=== PATIENT | male | born 1945 ===

== ENCOUNTER → 2018-09-27 12:52 | Outpatient (BNVA) | payer MEDICARE, MEDICAID, SELFPAY | PROVIDERS: Visit Provider Nurse Practitioner Gerontology | DX: N13.30 Unspecified hydronephrosis (principal); Z87.440 Personal history of urinary (tract) infections; M54.9 Dorsalgia, unspecified; I10 Essential (primary) hypertension; J44.9 Chronic obstructive pulmonary disease, unspecified | CPT/HCPCS: 51798; 81003; 99204 ==

== ENCOUNTER → 2019-02-06 10:30 | Outpatient (BNVA) | payer MEDICARE, MEDICAID, SELFPAY | PROVIDERS: PCP Family Medicine; Visit Provider Nurse Practitioner Gerontology | DX: R69 Illness, unspecified (principal) ==

== ENCOUNTER 2019-02-06 12:53 | Outpatient (CLI) | payer MEDICARE, MEDICAID, SELFPAY ==
--- NOTE | 2019-02-06 11:30 | DI.US_ITS ---
SYMPTOM/DIAGNOSIS: RT SCROTAL PAIN, N50.82 SCROTAL ULTRASOUND: Scrotal ultrasound was performed according to the usual protocol. Testes are symmetrical in size and of normal echotexture. Note is made of a focal multi septated cyst of the right testis on its lateral aspect. This shows no increased vascularity on doppler evaluation. This measures about 4 mm. in greatest diameter. No other intratesticular abnormality is seen. A 5 mm. presumed spermatocele is noted in the epididymal head on the right and there is a small right hydrocele. Epididymi otherwise appear intact. CONCLUSION: Intratesticular, septated cyst of the right testis. This is most likely to represent a benign lesion. There is a question of slight thickening of the septations, follow up ultrasound is recommended in 6 months to re-assess this finding.
== END 2019-02-06 13:13 ==
PROVIDERS: PCP Family Medicine; Visit Provider Nurse Practitioner Gerontology
DX: N50.82 Scrotal pain (principal); N44.2 Benign cyst of testis
CPT/HCPCS: 99213; 76870

== ENCOUNTER → 2019-02-26 07:46 | Outpatient (BNVA) | payer MEDICARE, MEDICAID, SELFPAY | PROVIDERS: PCP Family Medicine; Visit Provider Urology | DX: R69 Illness, unspecified (principal) ==

== ENCOUNTER → 2019-05-03 10:18 | Outpatient (BNVA) | payer MEDICARE, MEDICAID, SELFPAY | PROVIDERS: PCP Family Medicine; Referring Provider Family Medicine; Visit Provider Nurse Practitioner Gerontology | DX: N40.1 Benign prostatic hyperplasia with lower urinary tract symptoms (principal); Z87.440 Personal history of urinary (tract) infections; R31.9 Hematuria, unspecified | CPT/HCPCS: 81003; 99213 ==